=== PATIENT | male | born 1980 | race Caucasian/White ===

== ENCOUNTER 2018-05-10 08:40 | Outpatient (CLI) | payer BC ==
--- NOTE | 2018-05-10 11:50 | CT ---
CT ABDOMEN AND PELVIS WITH AND WITHOUT IV CONTRAST: Date: 05/10/18 HISTORY: Hematuria, unspecified, back pain. FINDINGS: Comparison made with the exam of 08/31/08. The lung bases are clear. The liver demonstrates decreased attenuation compared to the spleen consistent with fatty infiltratio n. No hepatic mass or abnormal biliary ductal dilatation is seen. There are a couple of punctate calc ifications in the gallbladder, likely gallstones. The spleen, pancreas, and adrenal glands are normal . No free air, free fluid, or lymphadenopathy seen in the abdomen or pelvis. No evidence of aneurysmal dilatation of the abdominal aorta. Colonic diverticulosis is noted without evidence of diverticulitis . No abdominal aortic aneurysm is seen. There are mild degenerative changes in the spine. There is so ft tissue density with calcification in the inguinal region on the left, which is stable since 2008, and is likely due to postop change. No calculi seen in the kidneys, ureters, or the urinary bladder. There is a 1.3 cm exophytic mass antony sing from the right kidney with attenuation value of 83 Hounsfield units and no postcontrast enhancem ent. An 8.0 mm low density lesion in the left renal cortex is likely cyst. There is normal contrast e xcretion into the pelvicaliceal systems, ureters, and the urinary bladder. No hydroureteronephrosis i s seen. No enhancing renal mass is seen. The benign-appearing low density lesion in the left iliac bone was noted on the previous study and ap pears slightly larger. IMPRESSION: 1. Fatty liver. 2. Probable cholelithiasis. 3. No CT evidence of urinary tract calculi or obstruction. 4. Probable small left renal cyst. 5. A 1.3 cm Hemorrhagic cyst right kidney. 6. Colonic diverticulosis. POS: OFF
== END 2018-05-10 08:41 | disposition home or self-care (01) ==
LOC: BICCT 08:40
PROVIDERS: ATTEND Urology
DX: R31.9 Hematuria, unspecified (principal); K76.0 Fatty (change of) liver, not elsewhere classified; N28.1 Cyst of kidney, acquired; K57.30 Diverticulosis of large intestine without perforation or abscess without bleeding
CPT/HCPCS: 74178

== ENCOUNTER 2018-05-25 11:07 | Outpatient (CLI) | payer BC ==
--- NOTE | 2018-05-25 21:16 | EKG ---
Test Reason : Blood Pressure : / mmHG Vent. Rate : 080 BPM Atrial Rate : 080 BPM P-R Int : 134 ms QRS Dur : 094 ms QT Int : 388 ms P-R-T Axes : 069 053 049 degrees QTc Int : 447 ms Normal sinus rhythm Normal ECG No previous ECGs available Confirmed by Hortensia RAINEY ([id number]) on 05/25/2018 9:16:03 PM Referred By: YULIANA Confirmed By:Hortensia RAINEY
== END 2018-05-25 11:08 | disposition home or self-care (01) ==
LOC: EKG 11:07
PROVIDERS: ATTEND Urology
DX: N35.919 Unspecified urethral stricture, male, unspecified site (principal)
CPT/HCPCS: 93005; 93010

== ENCOUNTER 2018-06-06 06:27 | Outpatient (CLI) | payer BC ==
[2018-06-06 12:35] LABS: Hemoglobin 14.7 g/dL (14.0-18.0); Mean Corpuscular HGB CONC 32.6 g/dL (32.0-36.0); Mean Corpuscular Hemoglobin 29.3 pg (27.0-31.0); Mean Corpuscular Volume 89.9 fL (78.0-98.0); Mean Platelet Volume 6.9 fL (7.4-10.4); Platelet Count 282 thou/uL (130-400); RBC Distribution Width 11.2 % (11.5-14.5); Red Blood Cell (RBC) Count 5.03 mill/uL (4.70-6.10); White Blood Cell (WBC) Count 7.3 thou/uL (4.8-10.8)
[2018-06-06 12:59] LABS: Anion Gap 16 mmol/L (10-20); BUN (Urea Nitrogen) 15 mg/dL (8.9-20.6); Calc. Creatinine Clearance 0 mL/min (70-130); Calcium 9.8 mg/dL (7.8-10.44); Carbon Dioxide 23 mmol/L (22-29); Chloride 104 mmol/L (98-107); Estimated GFR-MDRD Greater than 90; Glucose 109 mg/dL (70-105); Potassium 4.2 mmol/L (3.5-5.1); Sodium 139 mmol/L (136-145)
== END 2018-06-06 06:28 | disposition home or self-care (01) ==
LOC: LABBT 06:27
PROVIDERS: ATTEND Urology
DX: Z01.812 Encounter for preprocedural laboratory examination (principal); R31.9 Hematuria, unspecified; A63.0 Anogenital (venereal) warts; N35.919 Unspecified urethral stricture, male, unspecified site; Q61.9 Cystic kidney disease, unspecified
CPT/HCPCS: 80048; 81001; 85027

== ENCOUNTER 2018-06-12 07:04 | Day surgery (SDC) | payer BC ==
[2018-06-06 11:44] VITALS: BMI 34.7
[2018-06-12] MEDS ORDERED: CEFAZOLIN 2 GM/50 ML BAG ONE (07:56)
[2018-06-12] MEDS ORDERED: Lidocaine 1% (PF) 30 ML VIAL ONE (08:38)
[2018-06-12] MEDS ORDERED: Bupivacaine 0.25% HCL 30 ML VIAL ONE ×2 (08:39→08:49)
[2018-06-12] MEDS ORDERED: Fentanyl 100 MCG/2 ML VIAL ONE (09:00)
[2018-06-12] MEDS ORDERED: Midazolam HCl 2 mg/2 ml Vial ONE (09:04)
--- NOTE | 2018-06-12 13:04 | OP ---
DATE OF PROCEDURE: 06/12/2018 PREOPERATIVE DIAGNOSES: Meatal stenosis and hematuria. POSTOPERATIVE DIAGNOSES: Meatal stenosis and hematuria. PROCEDURES PERFORMED: Meatotomy and flexible cystoscopy. ANESTHESIA: General with ET tube and penile block using 15 mL of Marcaine. SPECIMENS: None. COMPLICATIONS: None. DRAIN REMAINING: None. INDICATION OF PROCEDURE: The patient is a 38-year-old male, who was followed in the office for hematuria and noted to have meatal stenosis. There were concerns about whether he had passed a stone versus a clot and was ultimately set up for meatotomy and flexible cystoscopy to rule out proximal strictures or any bladder concerns. DESCRIPTION OF PROCEDURE: The patient was brought into the room by Anesthesia, laid on the table in supine position. After receiving general anesthetic and an endotracheal tube, he was prepped and draped in a sterile fashion. Using a snip vertically and on the ventral portion, the excess skin was crushed and then sharply incised into the meatus was of adequate and even a little bit copious measurements and then at this time, flexible cystoscopy was used to traverse the urethra, which was found to be without strictures or lesions and the bladder itself, which was normal. The ureteral orifices were in normal position. There were no lesions and then I extracted the excess fluid that remained in the bladder and then removed the scope in its entirety. Then, attention was turned back to the meatus, where the mucosal edges were brought out laterally using 4-0 Monocryl in interrupted fashion. There was still a slight lip or web at the base of the meatus and so this was sharply incised and 1 more suture placed for hemostatic purposes and a very small amount of coagulation was used on the area by this 1 suture, would not anywhere near the lateral sutures that had just been placed and at this point, he was cleaned and bacitracin applied to the meatus and awakened and transferred to PACU in stable condition. Job ID: [id number]
[2018-06-12] MEDS ORDERED: Metoclopramide HCl 10 MG/2 ML VIAL ONE (16:38)
[2018-06-12] MEDS ORDERED: Dexamethasone 20 MG/5 ML VIAL ONE (16:38)
[2018-06-12] MEDS ORDERED: Rocuronium Bromide 10 MG/ML (10ML VIAL) ONE (16:38)
[2018-06-12] MEDS ORDERED: Lidocaine 1% PF 5 ML VIAL ONE (16:38)
[2018-06-12] MEDS ORDERED: PROPOFOL 200 MG/20 ML VIAL ONE (16:38)
[2018-06-12] MEDS ORDERED: Glycopyrrolate 0.2 MG/ML 5 ML SYRINGE ONE (16:38)
[2018-06-12] MEDS ORDERED: Ondansetron PF 4 MG/2 ML Vial ONE (16:38)
[2018-06-12] MEDS ORDERED: diphenhydrAMINE 50 MG/ML VIAL ONE (16:38)
== END 2018-06-12 12:30 | disposition home or self-care (01) ==
LOC: SDC 07:04
PROVIDERS: ATTEND Urology
PROC: 0TQDXZZ Repair Urethra, External Approach (ICD-10-PCS; principal; 2018-06-12)
PROC: 0TJB8ZZ Inspection of Bladder, Via Natural or Artificial Opening Endoscopic (ICD-10-PCS; principal; 2018-06-12)
DX: R31.9 Hematuria, unspecified (principal); N35.911 Unspecified urethral stricture, male, meatal; E78.5 Hyperlipidemia, unspecified; F90.0 Attention-deficit hyperactivity disorder, predominantly inattentive type; K21.9 Gastro-esophageal reflux disease without esophagitis; A63.0 Anogenital (venereal) warts; G47.30 Sleep apnea, unspecified; E66.3 Overweight; Z68.36 Body mass index [BMI] 36.0-36.9, adult; Z87.891 Personal history of nicotine dependence; Z79.82 Long term (current) use of aspirin; Z79.52 Long term (current) use of systemic steroids; Z79.899 Other long term (current) drug therapy
CPT/HCPCS: J1100; J1200; J2001; J2250; J2405; J2704; J2765; J3010; S0020